=== PATIENT | male | born 1965 | race Caucasian/White ===

== ENCOUNTER 2019-02-10 18:48 | Emergency (ER) | payer BC ==
[2019-02-10 19:30] VITALS: TEMP 99.2; O2SAT 97
--- NOTE | 2019-02-10 19:41 | ED.PDOC ---
History of Present Illness - General Chief Complaint: Laceration Stated Complaint: left pinky finger laceration Time Seen by Provider: 02/10/19 18:55 Source: patient Exam Limitations: no limitations - History of Present Illness Initial Comments: the patient is a 53-year-old male presenting to the emergency room secondary to sustaining a laceration to the volar aspect of the fifth digit of the left hand while crawling over a fence. Laceration is over the middle pad of the fifth finger. It is approximately 2/3 inch in length. It goes to the skin but not down to the tendons. He does have some chronic decreased sensation in his hands to start with. No obvious change there. He is vascularly preserved. Estimated blood loss prior to arrival was probably 5 cc. additionally the patient reports recent congestion. He does work out in multiple weeds. Timing/Duration: momentarily Severity: moderate Improving Factors: nothing Worsening Factors: nothing Associated Symptoms: denies symptoms Allergies/Adverse Reactions: Allergies Doxycycline [From Vibramycin] Allergy (Verified 02/10/19 19:30) Home Medications: Ambulatory Orders Hydrochlorothiazide 02/10/19 Lisinopril [Prinivil] 02/10/19 Meloxicam 02/10/19 Sulfa/Trimeth 800/160 (Ds) Tab [Bactrim DS Tab] 1 ea PO BID #6 tab 02/10/19 Testosterone Cypionate 02/10/19 predniSONE [Prednisone] 20 mg PO DAILY #3 tab 02/10/19 Review of Systems - Review of Systems Constitutional: States: no symptoms reported EENTM: States: ear pain, nose congestion Respiratory: States: no symptoms reported Cardiology: States: no symptoms reported Gastrointestinal/Abdominal: States: no symptoms reported Genitourinary: States: no symptoms reported Musculoskeletal: States: no symptoms reported Skin: States: see HPI Neurological: States: no symptoms reported Endocrine: States: no symptoms reported All other Systems: No Change from Baseline Past Medical History (General) - Patient Medical History Hx Seizures: No Hx Stroke: No Hx Dementia: No Hx Asthma: No Hx of COPD: No Hx Cardiac Disorders: No Hx Congestive Heart Failure: No Hx Pacemaker: No Hx Hypertension: Yes Hx Thyroid Disease: No Hx Diabetes: No Hx Gastroesophageal Reflux: No Hx Renal Disease: No Hx Cancer: No Hx of HIV: No Hx Hepatitis C: No Hx MRSA: No Surgical History: other - Vaccination History Hx Tetanus, Diphtheria Vaccination: No Hx Influenza Vaccination: No - Social History Hx Tobacco Use: No Hx Alcohol Use: No Family Medical History - Family History Mother Family History: Unknown Physical Exam - Physical Exam General Appearance: Alert, Comfortable, No apparent distress Eye Exam: bilateral normal Ears, Nose, Throat: hearing grossly normal, nasal congestion, other - he does have clear fluid behind bilateral tympanic membranes. Neck: full range of motion, supple Respiratory: lungs clear, normal breath sounds, no respiratory distress, no accessory muscle use Cardiovascular/Chest: normal peripheral pulses, no edema, other - regular rate Peripheral Pulses: radial,right: 2+, radial,left: 2+ Rectal Exam: deferred Extremity: normal range of motion, normal capillary refill, other - normal function of the left hand. Neurologic: dice person II-XII nml as tested, alert, normal mood/affect, oriented x 3, other - chronic sensory changes Skin Exam: normal color - 2/3 inch laceration to the palmar aspect of the fifth digit of the left hand. Comments: Vital Signs - 24 hr 02/10/19 19:19 Temperature 99.2 F Pulse Rate [ 99 H monitor] Respiratory 20 Rate Blood Pressure 96/68 [Right Arm] O2 Sat by Pulse 97 Oximetry Progress - Progress Progress: 02/10/19 19:42 the patient is a 53-year-old male presenting to the emergency room secondary to a 2/3 inch laceration to the fifth digit of the left hand. Risk and benefits of repair were explained and the patient agreed to proceed. Wound was cleaned with hydrogen peroxide and 2 cc of lidocaine without epinephrine were used for local anesthetic. 3 simple sutures of 3-0 [address]ilon were put in place for reapproximation. Patient tolerated this well. estimated blood loss is 1 cc. Sutures need to come out in 10-12 days. The patient was placed on 3 d ays of Bactrim for infection prophylaxis. Additionally the patient does have what appears to be allergic rhinitis and will be placed on 3 days of oral prednisone. He can continue his Zyrtec. ER warnings were given for any worsening. Keep routine follow-up with primary care doctor otherwise. dm [id number] Departure - Departure Clinical Impression: Accidental laceration Allergic rhinitis Qualifiers: Allergic rhinitis trigger: pollen Allergic rhinitis seasonality: seasonal Qualified Code(s): J30.1 - Allergic rhinitis due to pollen Disposition: Discharge to Home or Self Care Condition: Fair Departure Forms: ED Discharge - Pt. Copy, Patient Portal Self Enrollment Instructions: DI for Laceration Repair, DI for Laceration Repair -- Simple Diet: regular diet Activity: increase activity as tolerated Prescriptions: predniSONE [Prednisone] 20 mg PO DAILY #3 tab Sulfa/Trimeth 800/160 (Ds) Tab [Bactrim DS Tab] 1 ea PO BID #6 tab Home Medications: Ambulatory Orders Hydrochlorothiazide 02/10/19 Lisinopril [Prinivil] 02/10/19 Meloxicam 02/10/19 Sulfa/Trimeth 800/160 (Ds) Tab [Bactrim DS Tab] 1 ea PO BID #6 tab 02/10/19 Testosterone Cypionate 02/10/19 predniSONE [Prednisone] 20 mg PO DAILY #3 tab 02/10/19 Additional Instructions: the patient is a 53-year-old male presenting to the emergency room secondary to a 2/3 inch laceration to the fifth digit of the left hand. Risk and benefits of repair were explained and the patient agreed to proceed. Wound was cleaned with hydrogen peroxide and 2 cc of lidocaine without epinephrine were used for local anesthetic. 3 simple sutures of 3-0 Ethilon were put in place for reapproximation. Patient tolerated this well. estimated blood loss is 1 cc. Sutures need to come out in 10-12 days. The patient was placed on 3 days of Bactrim for infection prophylaxis. Additionally the patient does have what appears to be allergic rhinitis and will be placed on 3 days of oral prednisone. He can continue his Zyrtec. ER warnings were given for any worsening. Keep routine follow-up with primary care doctor otherwise.
[2019-02-10] MEDS ORDERED: NEOMYCIN-BACITRACIN-POLYMYXIN 0.9 GM UD TOP ONE (19:46)
[2019-02-10] MEDS: predniSONE 20 MG TAB PO ONE (19:48)
[2019-02-10] MEDS: SULFA/TRIMETH 800/160 (DS) TAB 1 EA TAB PO ONE (19:48)
[2019-02-10] MEDS: TETANUS,DIPHTHERIA,PERTUSSIS 1 EA SYG IM ONE (19:48)
[2019-02-10 20:02] VITALS: BP 117/80
== END 2019-02-10 19:59 | disposition home or self-care (01) ==
LOC: ER 18:48
DX: S61.217A Laceration without foreign body of left little finger without damage to nail, initial encounter (principal); J30.1 Allergic rhinitis due to pollen; I10 Essential (primary) hypertension; Z79.899 Other long term (current) drug therapy; Z88.1 Allergy status to other antibiotic agents; W45.8XXA Other foreign body or object entering through skin, initial encounter; Y92.9 Unspecified place or not applicable; Y93.89 Activity, other specified
CPT/HCPCS: 90471; 90715; J7512